=== PATIENT | female | born 1940 | race Caucasian/White ===

== ENCOUNTER 2016-08-11 13:23 | Inpatient (IN) ==
[2016-08-11 14:35] LABS: Basophils % 0.1 %; Eosinophils % 0.4 %; Hematocrit 33.3 % (35.3-44.9); Hemoglobin 10.2 g/dL (11.5-15.4); Immature Granulocytes % 0.5 % (0-4); Lymphocytes # 1.5 K/mcL (0.6-4.6); Lymphocytes % 13.6 %; Mean Corpuscular HGB Conc 30.6 g/dL (31.6-35.5); Mean Corpuscular Hemoglobin 25.6 pg (28.0-33.3); Mean Corpuscular Volume 83.5 fL (83.0-100.0); Mean Platelet Volume 9.8 fL (9.4-12.4); Monocytes # 0.9 K/mcL (0.0-1.3); Monocytes % 8.1 %; Neutrophils # 8.6 K/mcL (1.6-8.9); Platelet Count 374 K/mcL (140-400); Red Blood Count 3.99 M/mcL (3.82-4.97); Segmented Neutrophils % 77.3 %
[2016-08-11 14:46] LABS: BUN/Creatinine Ratio 30 (6-26); Blood Urea Nitrogen 23 mg/dL (7-20); Calcium 8.9 mg/dL (8.6-10.8); Carbon Dioxide 33 mEq/L (19-29); Chloride 101 mEq/L (98-109); Glucose 111 mg/dL (70-99); Osmolality,Calculated 298 (280-300); Potassium 3.6 mEq/L (3.5-4.5); Sodium 142 mEq/L (136-145); eGFR For African Americans > 60 (> 60); eGFR For Non-African Americans > 60 (> 60)
[2016-08-11] MEDS ORDERED: Furosemide 40 MG/4 ML VIAL IVP ONE (15:17)
[2016-08-11 16:03] LABS: Bilirubin,Urine Small (Negative); Blood,Urine Negative (Negative); Clarity,Urine Turbid (Clear); Color,Urine Dark Yellow (Yellow); Glucose,Urine (UA) Normal (Normal); Ketones,Urine Trace mg/dL (Negative); Leukocyte Esterase,Urine Small (Negative); Nitrite,Urine Negative (Negative); Protein,Urine 30 mg/dL (Neg-Trace); Specific Gravity,Urine 1.026 (1.010-1.025); Urobilinogen,Urine Normal (Normal)
[2016-08-11 16:05] LABS: Bacteria,Urine Many per hpf (None-Few); Hyaline Casts,Urine Few per lpf (None-Few); Squamous Epithelial Cell,Urine Many per lpf (None-Few)
[2016-08-11 16:18] LABS: RBC,Urine 0-3 per hpf (0-3)
--- NOTE | 2016-08-11 16:29 | Emergency Department Note ---
Disposition Clinical Impression: Congestive heart failure Qualifiers: Congestive heart failure type: unspecified congestive heart failure type Congestive heart failure chronicity: unspecified congestive heart failure chronicity Qualified Code(s): I50.9 - Heart failure, unspecified Disposition: Admitted As Inpatient Referrals: Kesha Bustillos CNP [Primary Care Provider] - Forms: ED Satisfaction Letter SOB HPI - General Chief Complaint: ED Upper Respiratory Infection Stated Complaint: congestion// sent from cardiology Source: patient Limitations: no limitations Nursing Notes Reviewed: Yes Vital Signs Reviewed: Yes - History of Present Illness Pt Subjective Complaint: shortness of breath Onset (ago): week(s) (1) Context: recent illness Severity: mild Consistency/Duration: intermittent Improves with: nothing Worsens with: coughing Associated symptoms: Denies: pain with inspiration, fever Treatment prior to arrival: none, other (Patient states she was prescribed a cough syrup) Cough present: Yes Cough Description: Involuntary Cough Frequency: Intermittent - Related Data Home Medications Medication Instructions Recorded Confirmed Atorvastatin [Lipitor] 20 mg PO HS 05/13/15 05/11/16 Multivitamin/Iron/Folic Acid 1 tab PO QAM 05/13/15 05/11/16 [Centrum Complete Multivit Tab] Ranolazine [Ranexa] 500 mg PO BID 05/13/15 05/11/16 Sertraline [Zoloft] 25 mg PO DAILY 02/14/16 05/11/16 Metoprolol Succinate 25 mg PO DAILY 02/15/16 05/11/16 Nitroglycerin [Nitrostat] 0.4 mg SL Q5M PRN 02/15/16 05/11/16 Previous Rx's Medication Instructions Recorded Isosorbide MONOnitrate (24 HR) 60 mg PO DAILY tab.er.24h 02/16/16 [Imdur] Albuterol Sulfate [Albuterol 2 puff IH Q4H PRN #0 03/10/16 Inhaler] Docusate [Colace] 100 mg PO BID PRN #0 capsule 03/10/16 MOM Conc [MILK OF MAGNESIA conc] 10 ml PO DAILY PRN #0 ud.liq 03/10/16 Nitrofurantoin Macrocrystal 100 mg PO QMWF #0 03/10/16 [Nitrofurantoin] TraMADol [Ultram] 50 mg PO BID PRN #120 tablet 03/10/16 Allergies Allergy/AdvReac Type Severity Reaction Status Date / Time codeine Allergy Rash Verified 08/11/16 13:31 Iodinated Contrast Media - Allergy Rash Verified 08/11/16 13:31 Oral and [Iodinated Contrast Media - IV Dye] morphine Allergy Rash Verified 08/11/16 13:31 Penicillins [PCN] Allergy Rash Verified 08/11/16 13:31 Sulfa (Sulfonamide Allergy Rash Verified 08/11/16 13:31 Antibiotics) Tetracycline Allergy Rash Verified 08/11/16 13:31 vancomycin Allergy Rash Verified 08/11/16 13:31 All systems ED: reviewed and negative except as stated. Constitutional: Reports: weakness. Denies: fever, chills Respiratory: Reports: cough, dyspnea Past Medical History - Past Medical History Source: patient, old records reviewed, nursing notes reviewed Medical history: Reports: asthma, coronary artery disease, CVA, diabetes, hypertension, myocardial infarction, peripheral artery disease, TIA Surgical history: Reports: appendectomy, cholecystectomy Psychiatric history: Reports: no psych history [employer] PRINCIPAL history: Reports: no [employer] PRINCIPAL history - Social History Smoking Status: Never smoker Smokeless Tobacco Status: No Alcohol use: Reports: none Drug use: Reports: none Physical Exam - General Limitations: no limitations General appearance: alert - Head Head exam: atraumatic, normocephalic, normal inspection - Eye Eye exam: Present: normal appearance, PERRL, EOMI - ENT ENT exam: normal exam - Neck Neck exam: Present: normal inspection, full ROM, trachea midline - Chest Chest inspection: Present: normal inspection, symmetric chest wall rise - Respiratory Respiratory exam: Present: other (coarse rhonchi with bibasilar rales) - Cardiovascular Cardiovascular exam: Present: regular rate, normal rhythm, normal heart sounds - Abdominal Exam Abdominal exam: Present: soft, Non-Tender. Absent: tenderness, distention, guarding, rebound, rigidity - Neurological Exam Neurological exam: Present: alert, oriented X3 - Psychiatric Psychiatric exam: Present: normal affect, normal mood - Skin Skin exam: Present: warm, dry, intact, normal color Course Vital Signs Temperature 98.8 F 08/11/16 13:25 Pulse Rate 93 08/11/16 13:25 Respiratory Rate 18 08/11/16 13:25 Blood Pressure 182/114 08/11/16 13:25 O2 Sat by Pulse Oximetry 94 L 03/08/17 13:25 Temperature 98.8 F 08/11/16 13:25 Pulse Rate 93 08/11/16 13:25 Respiratory Rate 18 08/11/16 13:25 Blood Pressure 182/114 08/11/16 13:25 O2 Sat by Pulse Oximetry 94 L 08/11/16 13:25 Oxygen Delivery Oxygen Delivery Room Air Shortness of Breath/Dyspnea - Differential Diagnosis Likely: congestive heart failure, pneumonia, pulmonary embolism, arrhythmia - Medical Records Medical records reviewed: Yes I reviewed the patient's medical records. - Lab Data Lab results reviewed: Yes I reviewed the patient's lab results. Result diagrams: 08/11/16 14:27 08/11/16 14:27 Lab Results 08/11/16 08/11/16 08/11/16 Range/Units 14:27 14:27 14:27 WBC 11.1 (4.3-11.1) K/mcL RBC 3.99 (3.82-4.97) M/mcL Hgb 10.2 L (11.5-15.4) g/dL Hct 33.3 L (35.3-44.9) % MCV 83.5 (83.0-100.0) fL MCH 25.6 L (28.0-33.3) pg MCHC 30.6 L (31.6-35.5) g/dL RDW 19.0 H (11.5-14.5) % Plt Count 374 (140-400) K/mcL MPV 9.8 (9.4-12.4) fL Immature Gran % 0.5 (0-4) % Seg Neutrophils % 77.3 % Lymphocytes % 13.6 % Monocytes % 8.1 % Eosinophils % 0.4 % Basophils % 0.1 % Neutrophils # 8.6 (1.6-8.9) K/mcL Lymphocytes # 1.5 (0.6-4.6) K/mcL Monocytes # 0.9 (0.0-1.3) K/mcL Eosinophils # 0.0 (0.0-0.6) K/mcL Basophils # 0.0 (0.0-0.2) K/mcL Sodium 142 (136-145) mEq/L Potassium 3.6 (3.5-4.5) mEq/L Chloride 101 (98-109) mEq/L Carbon Dioxide 33 H (19-29) mEq/L BUN 23 H (7-20) mg/dL Creatinine 0.76 (0.57-1.11) mg/dL Est GFR ( Amer) > 60 (> 60) Est GFR (Non-Af Amer) > 60 (> 60) BUN/Creatinine Ratio 30 H (6-26) Glucose 111 H (70-99) mg/dL Calculated Osmolality 298 (280-300) Calcium 8.9 (8.6-10.8) mg/dL Troponin I 0.02 (0-0.03) ng/mL B-Natriuretic Peptide (0-100) pg/mL Urine Color (Yellow) Urine Clarity (Clear) Urine pH (5.0-8.0) pH Units Ur Specific [place] (1.010-1.025) Urine Protein (Neg-Trace) mg/dL Urine Glucose (UA) (Normal) mg/dL Urine Ketones (Negative) mg/dL Urine Blood (Negative) Urine Nitrite (Negative) Urine Bilirubin (Negative) Urine Urobilinogen (Normal) mg/dL Ur Leukocyte Esterase (Negative) Urine Microscopic RBC (0-3) per hpf Urine Microscopic WBC (0-3) per hpf Ur Squamous Epith Cells (None-Few) per lpf Urine Bacteria (None-Few) per hpf Hyaline Casts (None-Few) per lpf Urine Yeast Ur Culture Indicated? (NO) 08/11/16 08/11/16 Range/Units 14:27 15:52 WBC (4.3-11.1) K/mcL RBC (3.82-4.97) M/mcL Hgb (11.5-15.4) g/dL Hct (35.3-44.9) % MCV (83.0-100.0) fL MCH (28.0-33.3) pg MCHC (31.6-35.5) g/dL RDW (11.5-14.5) % Plt Count (140-400) K/mcL MPV (9.4-12.4) fL Immature Gran % (0-4) % Seg Neutrophils % % Lymphocytes % % Monocytes % % Eosinophils % % Basophils % % Neutrophils # (1.6-8.9) K/mcL Lymphocytes # (0.6-4.6) K/mcL Monocytes # (0.0-1.3) K/mcL Eosinophils # (0.0-0.6) K/mcL Basophils # (0.0-0.2) K/mcL Sodium (136-145) mEq/L Potassium (3.5-4.5) mEq/L Chloride (98-109) mEq/L Carbon Dioxide (19-29) mEq/L BUN (7-20) mg/dL Creatinine (0.57-1.11) mg/dL Est GFR ( Amer) (> 60) Est GFR (Non-Af Amer) (> 60) BUN/Creatinine Ratio (6-26) Glucose (70-99) mg/dL Calculated Osmolality (280-300) Calcium (8.6-10.8) mg/dL Troponin I (0-0.03) ng/mL B-Natriuretic Peptide 751 H (0-100) pg/mL Urine Color Dark Yellow (Yellow) Urine Clarity Turbid A (Clear) Urine pH 6.0 (5.0-8.0) pH Units Ur Specific [place] 1.026 H (1.010-1.025) Urine Protein 30 H (Neg-Trace) mg/dL Urine Glucose (UA) Normal (Normal) mg/dL Urine Ketones Trace H (Negative) mg/dL Urine Blood Negative (Negative) Urine Nitrite Negative (Negative) Urine Bilirubin Small H (Negative) Urine Urobilinogen Normal (Normal) mg/dL Ur Leukocyte Esterase Small H (Negative) Urine Microscopic RBC 0-3 (0-3) per hpf Urine Microscopic WBC 5-15 H (0-3) per hpf Ur Squamous Epith Cells Many H (None-Few) per lpf Urine Bacteria Many H (None-Few) per hpf Hyaline Casts Few (None-Few) per lpf Urine Yeast Test Not Performed Ur Culture Indicated? YES A (NO) - Radiology Data Radiology results reviewed: Yes I reviewed the patient's radiology results. - EKG Data EKG attestation: Yes I reviewed and interpreted this EKG. Rate: Reports: normal Rhythm: Reports: A.Fib [place]/QRS: Reports: normal Interpretation: Reports: nonspecific ST-T wave changes
[2016-08-11] MEDS ORDERED: Furosemide 20 MG TABLET PO PRN ×2 (21:30→21:50)
[2016-08-11] MEDS ORDERED: ALPRAZolam 0.25 MG TABLET PO PRN (21:33)
--- NOTE | 2016-08-11 21:46 | Internal Med History&Physical ---
Date of Encounter: 08/11/16 Time of Encounter: 21:44 Assessment and Plan (1) Acute bronchitis Status: Acute I suspect that the presentation is mainly related to bronchitis and exacerbation of patient's asthma. I will therefore keep the patient on around- the-clock nebulizer treatment. I will also give the patient a small dose of oral steroids. Azithromycin. Will check sputum cultures. There is no Evidence of pneumonia on chest x-ray Qualifiers: Bronchitis organism: unspecified organism Qualified Code(s): J20.9 - Acute bronchitis, unspecified (2) Congestive heart failure Status: Chronic Patient had received 40 mg IV Lasix in the emergency room. I will continue 20 mg PO Lasix daily. Qualifiers: Congestive heart failure type: diastolic Congestive heart failure chronicity: acute on chronic Qualified Code(s): I50.33 - Acute on chronic diastolic (congestive) heart failure (3) Atrial fibrillation Status: Chronic Continual rate control and anticoagulation strategy. The rates is controlled Qualifiers: Atrial fibrillation type: chronic Qualified Code(s): I48.2 - Chronic atrial fibrillation Internal Medicine - H&P: HPI Chief complaint: Shortness of breath and cough History of present illness: Ms. Silverio is a 75 year old female asthma and diastolic CHF chronic persistent aFib presents to the emergency room today with the main complaint of cough shortness of breath. For the past 2 weeks patient has been having cough with scant sputum production and has been getting progressively short of breath. She mentioned that she was having fevers and chills but is not sure of temperature. She has been having chest wheezing. She is not only 6 at home. She denies any notable lower extremity swelling orthopnea or paroxysmal nocturnal dyspnea. She has minimal chest pain only with inspiration. she is on anticoagulation was arousal for atrial fibrillation. Past Med Surg Social Fam HX - Past Medical History Medical history: asthma, coronary artery disease, CVA, diabetes, hypertension, myocardial infarction, peripheral artery disease, TIA Psychiatric history: no psych history - Past Surgical History Surgical History: appendectomy, cholecystectomy - Social History Smoking Status: Never smoker Smokeless Tobacco Status: No Alcohol use: none Drug use: none - Family History Mother Hx Family Cancer: Yes (stomach) Father Hx Family Cardiac Disorders: Yes Daughter Adopted: No Living Status: Still Living Hx Family Cardiac Disorders: Yes (VT) Hx Family Respiratory Disorders: Yes (not sure) Hx Family Cancer: No Hx Family GI Disorders: No Hx Family Endocrine Disorder: Yes (Diabetes) Hx Family Neuromuscular Disorders: No Hx Family Neurologic Disorders: No Hx Family HEENT Disorders: No Hx Family Autoimmune Disorders: No Internal Medicine - H&P: Meds Ranolazine [Ranexa] 500 mg PO BID 05/13/15 [History] Albuterol Sulfate [Albuterol Inhaler] 1 puff IH Q4H PRN 08/11/16 [History] Alprazolam [Xanax 0.25 MG Tablet] 0.25 mg PO Q6H PRN 08/11/16 [History] Aspirin 81 mg PO DAILY 08/11/16 [History] Atorvastatin Calcium [Lipitor] 20 mg PO HS 08/11/16 [History] Calcium Carbonate [Tums] 1,000 mg PO Q4HR PRN 08/11/16 [History] Citalopram Hydrobromide [Citalopram HBr] 10 mg PO HS 08/11/16 [History] Clopidogrel [Plavix] 75 mg PO DAILY 08/11/16 [History] Diphenhydramine HCl [Children's Allergy] 12.5 mg PO Q8H PRN 08/11/16 [History] Divalproex Sodium [Depakote Sprinkle] 125 mg PO TID 08/11/16 [History] Docusate [Colace] 200 mg PO BID 08/11/16 [History] Famotidine [Heartburn Prevention] 20 mg PO BID 08/11/16 [History] GuaiFENesin/Dextromethorphan [Tussin Dm Syrup] 10 ml PO TID 08/11/16 [History] Haloperidol Lactate [Haldol] 1 mg IM Q2H PRN 08/11/16 [History] Haloperidol [Haldol] 1 mg PO Q2H PRN 08/11/16 [History] Isosorbide MONOnitrate (24 HR) [Imdur] 90 mg PO DAILY 08/11/16 [History] Metoprolol XL (24 HR) Succ [Toprol Xl] 50 mg PO DAILY 08/11/16 [History] Polyethylene Glycol 3350 [MiraLAX Powder Bulk 17.9 Oz] 1 scoop PO DAILY [History] Rivaroxaban [Xarelto] 15 mg PO 1700 08/11/16 [History] Temazepam [Restoril] 7.5 mg PO HS 08/11/16 [History] TraMADol [Ultram] 50 mg PO Q8H PRN 08/11/16 [History] Clindamycin [Cleocin] 300 mg PO TID 7 Days 08/15/16 [Rx] Ipratropium/Albuterol Neb [Duoneb] 3 ml IH [id number] inhsol 08/15/16 [Rx] Lactobac Cmb #3/Fos/Pantethine [Probiotic & Acidophilus Cap] 1 each PO BID 30 Days 08/15/16 [Rx] Linezolid [Zyvox] 600 mg PO BID 10 Days 08/15/16 [Rx] PredniSONE 10 mg PO DAILY 7 Days 08/15/16 [Rx] Allergies codeine Allergy (Verified 08/11/16 13:31) Rash Iodinated Contrast Media - Oral and [Iodinated Contrast Media - IV Dye] Allergy (Verified 08/11/16 13:31) Rash morphine Allergy (Verified 08/11/16 13:31) Rash Penicillins [PCN] Allergy (Verified 08/11/16 13:31) Rash Sulfa (Sulfonamide Antibiotics) Allergy (Verified 08/11/16 13:31) Rash Tetracycline Allergy (Verified 08/11/16 13:31) Rash vancomycin Allergy (Verified 08/11/16 13:31) Rash All Systems PM: A 10-system review of systems was performed and is negative for pertinent findings except as documented above in the HPI. Review of systems: 10 point review of systems is negative except for HPI - Constitutional Vitals: Temp Pulse Resp BP Pulse Ox 98.0 F 68 16 168/90 95 08/11/16 19:56 08/11/16 19:56 08/11/16 19:56 08/11/16 19:56 08/11/16 19:56 Exam: Gen.: patient is alert and oriented times 3 and often distress cardiac: normal S1 S2 chest: coarse breath sounds and scattered expiratory wheeze abdomen: soft nontender nondistended lower extremity no swelling Internal Med - H&P Results - Labs CBC & Chem 7: 08/15/16 04:13 08/15/16 04:13
[2016-08-11] MEDS: Azithromycin 500 MG in D5% in Water 250 ML IVPB SCH (23:27)
[2016-08-11] MEDS: predniSONE 20 MG TABLET PO SCH (23:28)
[2016-08-11] MEDS: Ipratropium/Albuterol Neb 3 ML IH SCH (23:52)
[2016-08-12] MEDS ORDERED: Ondansetron 4 MG/2 ML VIAL IVP PRN (00:56)
[2016-08-12] MEDS: traMADol 50 MG TABLET PO PRN ×2 (01:16→21:12)
[2016-08-12] MEDS: Ipratropium/Albuterol Neb 3 ML IH SCH ×4 (03:41→22:56)
[2016-08-12 04:47] LABS: Basophils % 0.1 %; Eosinophils % 0.1 %; Hematocrit 34.4 % (35.3-44.9); Hemoglobin 10.5 g/dL (11.5-15.4); Immature Granulocytes % 0.4 % (0-4); Lymphocytes # 0.8 K/mcL (0.6-4.6); Lymphocytes % 8.6 %; Mean Corpuscular HGB Conc 30.5 g/dL (31.6-35.5); Mean Corpuscular Hemoglobin 25.8 pg (28.0-33.3); Mean Corpuscular Volume 84.5 fL (83.0-100.0); Mean Platelet Volume 10.3 fL (9.4-12.4); Monocytes # 0.3 K/mcL (0.0-1.3); Monocytes % 3.3 %; Neutrophils # 8.3 K/mcL (1.6-8.9); Platelet Count 351 K/mcL (140-400); Red Blood Count 4.07 M/mcL (3.82-4.97); Red Cell Distribution Width 19.3 % (11.5-14.5); Segmented Neutrophils % 87.5 %
[2016-08-12 05:02] LABS: BUN/Creatinine Ratio 28 (6-26); Blood Urea Nitrogen 20 mg/dL (7-20); Calcium 8.2 mg/dL (8.6-10.8); Carbon Dioxide 35 mEq/L (19-29); Chloride 100 mEq/L (98-109); Glucose 117 mg/dL (70-99); Magnesium 1.4 mg/dL (1.6-2.6); Osmolality,Calculated 298 (280-300); Potassium 3.6 mEq/L (3.5-4.5); Sodium 142 mEq/L (136-145); eGFR For African Americans > 60 (> 60); eGFR For Non-African Americans > 60 (> 60)
[2016-08-12] MEDS: Famotidine 20 MG TABLET PO SCH ×3 (06:37→16:02)
[2016-08-12] MEDS ORDERED: Furosemide 20 MG/2 ML VIAL IVP SCH (09:00)
[2016-08-12] MEDS: Ranolazine 500 MG TAB.ER.12H PO SCH ×2 (09:11→21:13)
[2016-08-12] MEDS: predniSONE 20 MG TABLET PO SCH (09:12)
[2016-08-12] MEDS: Isosorbide MONOnitrate (24 HR) 30 MG TAB.ER.24H PO SCH (09:13)
[2016-08-12] MEDS: Aspirin 81 MG TAB.CHEW PO SCH (09:15)
[2016-08-12] MEDS: Metoprolol XL (24 HR) Succ 50 MG TAB.ER.24H PO SCH (09:17)
[2016-08-12] MEDS: Divalproex Sodium 125 MG CAPSULE PO SCH ×3 (09:25→21:13)
--- NOTE | 2016-08-12 11:07 | Electrocardiograph Report ---
[address] [address] Test Date: 2016-08-11 Pat Name: Irene Jean Claude Department: 102 Room: 3B48 Gender: F It Desktop Support Technician: : 1940 Requested By: Dilshad Oakley Order Number: [id number] Reading MD: Alverto Anderson MD Measurements Intervals [place] Rate: 89 P: MS: 0 QRS: 3 QRSD: 81 T: 66 QT: 368 QTc: 415 Interpretive Statements ATRIAL FIBRILLATION NONSPECIFIC ST \T\ T-WAVE ABNORMALITY Poor R wave progression Electronically Signed On 08-12-2016 11:05:23 EST by Alverto Anderson MD
--- NOTE | 2016-08-12 13:41 | Internal Med Progress Note ---
Date of Encounter: 08/12/16 Time of Encounter: 10:30 - Assessment and plan (1) Acute bronchitis Current Visit: Yes Status: Acute Assessment and plan: Patient saying her shortness of breath is improving but she is not yet back to her baseline. At home, she is on 2 L per nasal cannula at that time, she is currently on 2 L continuously. Fair to good aeration throughout with coarse rhonchi and upper airway congestion noted. We will continue to gently diurese, will add mucolytic's. (2) Chest pain Current Visit: No Status: Acute Assessment and plan: Reproducible with palpation and worsened with coughing. Musculoskeletal etiology secondary to chronic cough over the past couple weeks. We will continue with pain management and incentive spirometry. Qualifiers: Chest pain type: unspecified Qualified Code(s): R07.9 - Chest pain, unspecified (3) Acute and chronic respiratory failure Current Visit: Yes Status: Acute Assessment and plan: 2 L per nasal cannula at bedtime home, currently on 2 L continuously. We will continue to attempt to titrate her down to room air while awake. We will trend. (4) Congestive heart failure Current Visit: Yes Status: Chronic Assessment and plan: Patient had an echocardiogram on which revealed ejection fraction of 65 % with indeterminate diastolic function. She is on Lasix at home, suspect chronic diastolic heart failure. Mild acute exacerbation. Chest x-ray consistent with mild pulmonary vascular congestion. No pedal edema. Continue to gently diurese and monitor renal functioning. ITS Impressions Chest X-Ray 08/11/16 13:49 IMPRESSION: Minimal pulmonary vascular congestion D/ / Omar Sales MD / Omar Sales MD Interpreting Provider: Omar Sales MD (5) Asymptomatic bacteriuria Current Visit: Yes Status: Suspected Assessment and plan: Suspected. Patient's urine culture revealing lactobacillus which is likely a contaminant- no need for antibiotics at this time. She has no overt symptoms of an infection. No leukocytosis. No fever. Vital signs stable. We will repeat urinalysis. Patient also denies abdominal pain or dysuria. 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 She is reportedly a bed hold [facility], plan is to send her back when cleared (9) Atrial fibrillation Current Visit: No Status: Chronic Assessment and plan: Rate controlled, on Xarelto Qualifiers: Atrial fibrillation type: paroxysmal Qualified Code(s): I48.0 - Paroxysmal atrial fibrillation (10) CKD (chronic kidney disease) stage 3, GFR 30-59 ml/min Current Visit: No Status: Inactive Assessment and plan: Patient has had normal renal functioning since March 2016. No indication of chronic kidney disease at this time. (11) Hypertension Current Visit: No Status: Chronic Assessment and plan: Borderline hypertensive. At home, patient is on metoprolol XL 50 mg daily, Imdur 90 mg daily and these have continued, will monitor her blood pressure as we gently diurese her Qualifiers: Hypertension type: essential hypertension Qualified Code(s): I10 - Essential (primary) hypertension - Subjective Interval history: Patient seen and examined. On examination, patient sitting upright in bed watching television. Patient alert and oriented and currently denies pain. She states that she is still short of breath and states she has been coughing and has been sick for weeks. She states she ate a little of her breakfast but really didn't care for it. She denies any nausea or vomiting. - Constitutional Vitals: Temp Pulse Resp BP Pulse Ox 97.3 F L 87 17 165/92 94 L 08/12/16 07:20 08/12/16 07:20 08/12/16 07:20 08/12/16 07:20 08/12/16 07:20 General appearance: Present: A&O X 3, pleasant, no acute distress, answers questions appropriately - Head Head exam: Present: atraumatic, normocephalic - Eye Eye exam: Present: PERRL, conjuntiva pink, sclera anicteric Pupils: Present: PERRL - Neck Neck exam general surgery: Present: supple, trachea midline. Absent: lymphadenopathy - Respiratory Respiratory exam: Present: chest wall tenderness, decreased breath sounds, rhonchi. Absent: accessory muscle use, rales, respiratory distress, wheezes - Cardiovascular Cardiovascular exam: Present: RRR, +S1, +S2. Absent: diastolic murmur, gallop, rubs, systolic murmur - GI/Abdominal GI/Abdominal exam: Present: normal bowel sounds, soft, no peritoneal signs. Absent: distended, tenderness - Extremities Exam Extremities exam: Present: warm, radial pulses palpable and symetrical. Absent : calf tenderness, cyanotic, pedal edema - Neurological Exam Neurological exam: Present: alert, CN II-XII intact, oriented X3, no focal deficits, strengths equal and symetr throughout. Absent: pronater drift, facial droop, speech deficit - Skin Skin exam: Present: dry, intact, pallor, warm Internal Medicine: Result - Labs CBC & Chem 7: 08/12/16 03:56 08/12/16 03:56 Labs: Short CBC 08/12/16 Range/Units 03:56 WBC 9.4 (4.3-11.1) K/mcL Hgb 10.5 L (11.5-15.4) g/dL Hct 34.4 L (35.3-44.9) % Plt Count 351 (140-400) K/mcL Neutrophils # 8.3 (1.6-8.9) K/mcL BMP 08/12/16 03:56 Sodium 142 Potassium 3.6 Chloride 100 Carbon Dioxide 35 H BUN 20 Creatinine 0.71 Glucose 117 H Calcium 8.2 L Consult Discharge Plan - Plan Referrals: Kesha Bustillos, WE[employer] PAGE DEVELOPER [Primary Care Provider] -
[2016-08-12] MEDS: *HR* Rivaroxaban 15 MG TABLET PO SCH (16:02)
[2016-08-12 21:22] LABS: Bilirubin,Urine Moderate (Negative); Blood,Urine Large (Negative); Clarity,Urine Turbid (Clear); Glucose,Urine (UA) Normal (Normal); Ketones,Urine Trace mg/dL (Negative); Leukocyte Esterase,Urine Small (Negative); Nitrite,Urine Positive (Negative); Protein,Urine 100 mg/dL (Neg-Trace); Specific Gravity,Urine 1.029 (1.010-1.025); Urobilinogen,Urine Normal (Normal)
[2016-08-12 21:26] LABS: Color,Urine Brown (Yellow)
[2016-08-12 21:40] LABS: RBC,Urine TNTC per hpf (0-3)
[2016-08-12 21:41] LABS: Bacteria,Urine Present per hpf (None-Few); Squamous Epithelial Cell,Urine Present per lpf (None-Few); WBC,Urine Present per hpf (0-3)
[2016-08-12] MEDS: Azithromycin 500 MG in D5% in Water 250 ML IVPB SCH (22:01)
[2016-08-13] MEDS: Ipratropium/Albuterol Neb 3 ML IH SCH ×4 (04:32→21:47)
[2016-08-13 04:49] LABS: Basophils % 0.1 %; Eosinophils % 0.1 %; Hematocrit 32.5 % (35.3-44.9); Hemoglobin 9.6 g/dL (11.5-15.4); Immature Granulocytes % 0.4 % (0-4); Lymphocytes # 1.8 K/mcL (0.6-4.6); Lymphocytes % 10.7 %; Mean Corpuscular HGB Conc 29.5 g/dL (31.6-35.5); Mean Corpuscular Hemoglobin 24.7 pg (28.0-33.3); Mean Corpuscular Volume 83.8 fL (83.0-100.0); Mean Platelet Volume 10.2 fL (9.4-12.4); Monocytes # 1.2 K/mcL (0.0-1.3); Monocytes % 6.8 %; Platelet Count 366 K/mcL (140-400); Red Blood Count 3.88 M/mcL (3.82-4.97); Red Cell Distribution Width 19.1 % (11.5-14.5); Segmented Neutrophils % 81.9 %
[2016-08-13 04:57] LABS: Neutrophils # 13.8 K/mcL (1.6-8.9)
[2016-08-13 05:02] LABS: BUN/Creatinine Ratio 31 (6-26); Blood Urea Nitrogen 25 mg/dL (7-20); Calcium 8.4 mg/dL (8.6-10.8); Carbon Dioxide 34 mEq/L (19-29); Chloride 98 mEq/L (98-109); Glucose 95 mg/dL (70-99); Osmolality,Calculated 294 (280-300); Potassium 3.3 mEq/L (3.5-4.5); Sodium 140 mEq/L (136-145); eGFR For African Americans > 60 (> 60); eGFR For Non-African Americans > 60 (> 60)
[2016-08-13] MEDS ORDERED: Furosemide 20 MG TABLET PO SCH (09:00)
[2016-08-13] MEDS: Ranolazine 500 MG TAB.ER.12H PO SCH ×2 (09:18→20:01)
[2016-08-13] MEDS: Isosorbide MONOnitrate (24 HR) 30 MG TAB.ER.24H PO SCH (09:18)
[2016-08-13] MEDS: predniSONE 20 MG TABLET PO SCH (09:19)
[2016-08-13] MEDS: Aspirin 81 MG TAB.CHEW PO SCH (09:19)
[2016-08-13] MEDS: traMADol 50 MG TABLET PO PRN (09:19)
[2016-08-13] MEDS: Famotidine 20 MG TABLET PO SCH ×2 (09:19→16:00)
[2016-08-13] MEDS: Metoprolol XL (24 HR) Succ 50 MG TAB.ER.24H PO SCH (09:20)
[2016-08-13] MEDS: Divalproex Sodium 125 MG CAPSULE PO SCH ×3 (09:20→19:59)
[2016-08-13] MEDS: *HR* Rivaroxaban 15 MG TABLET PO SCH (16:00)
--- NOTE | 2016-08-13 16:03 | Internal Med Progress Note ---
Date of Encounter: 08/13/16 Time of Encounter: 12:30 - Assessment and plan (1) Acute encephalopathy Current Visit: Yes Status: Acute Assessment and plan: When I examine the patient earlier this morning, she was alert and oriented 3. She would randomly safe and appropriate things however she was able to answer questions and follow conversation. Throughout the course of the day, patient has started to exhibit signs of confusion intermittently. Nursing reports that the patient has been increasingly more confused over the course of today. Her urine is also noted to be brown. Leukocytosis noted overnight and appears to be more of an increased and would be seen with low-dose steroids that she has been on for the last 3 days. Unclear causation at this time. Initial urinalysis and culture consistent with lactobacillus however repeat urinary culture negative. At this point, Lasix has been stopped and IV fluids have been initiated and will check blood culture, ABGs, CBC, chemistry and initiate broad-spectrum antibiotics. Given all of her allergies, we will treat her with meropenem and Zyvox given her history of MRSA. Of note, also during the course of today, patient stating that she is now very itchy and is requesting Benadryl. Possible adverse reaction to cephalosporins which is consistent with her prior allergic reactions to other antibiotics. Heart rate is also trended up over the course of today, we will bolus with 500 mL. We will obtain a chest CT to rule out pneumonia. Patient has had URI symptoms with a sore throat for a couple weeks, so strep throat is a possiblity and will check Antistreptolysin O antibody to rule out post strep glomerular nephritis. Will also obtain urine creat/protein ratio and microalbumin levels. (2) Sepsis Current Visit: Yes Status: Acute Assessment and plan: 500 mL bolus followed by maintenance IV fluids. Labs ordered and are pending. Patient remains alert and appropriate for the most part but is still confused at times. We will monitor her mentation. Unknown causation at this time. Initial urine culture lactobacillus thought to be consistent with contaminant, repeat urine culture negative. Chest CT pending to rule out pneumonia. (3) Leukocytosis Current Visit: Yes Status: Acute (4) Acute bronchitis Current Visit: Yes Status: Acute Assessment and plan: Patient is sitting or shortness of breath has improved. She remains on 2 L per nasal cannula continuously, on 2 L at bedtime only at home. Good aeration noted throughout with few, scattered coarse breath sounds consistent with upper airway congestion. Patient stating she has a moist cough but is unable to cough up sputum. Continue mucolytic's and add chest physiotherapy. (5) Chest pain Current Visit: No Status: Resolved Assessment and plan: Patient denies chest pain at this time. Yesterday it was reproducible with palpation and worsened with coughing consistent with musculoskeletal etiology. We will continue with pain management and incentive spirometry. Qualifiers: Chest pain type: unspecified Qualified Code(s): R07.9 - Chest pain, unspecified (6) Acute and chronic respiratory failure Current Visit: Yes Status: Acute Assessment and plan: 2 L per nasal cannula at bedtime home, currently on 2 L continuously. We will continue to attempt to titrate her down to room air while awake. Given her leukocytosis overnight, will obtain a chest CT. We will trend. (7) Congestive heart failure Current Visit: Yes Status: Chronic Assessment and plan: Patient had an echocardiogram on 02/16/16 which revealed ejection fraction of 65 % with indeterminate diastolic function. She is on Lasix at home, suspect chronic diastolic heart failure. Was in a mild acute exacerbation but she appears slightly dehydrated on examination with darker urine- will stop lasix and add IVF. Chest x-ray consistent with mild pulmonary vascular congestion from 2 days ago- will obtain chest CT. No pedal edema. ITS Impressions Chest X-Ray 08/11/16 13:49 IMPRESSION: Minimal pulmonary vascular congestion D/ / Omar Sales MD / Omar Sales MD Interpreting Provider: Omar Sales MD (8) Asymptomatic bacteriuria Current Visit: Yes Status: Suspected Assessment and plan: Suspected. Patient's urine culture revealing lactobacillus which is likely a contaminant- no need for antibiotics at this time. Repeat urine culture negative however patient with leukocytosis overnight. 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 (11) Weakness Current Visit: No Status: Acute Assessment and plan: OT and PT are on board and have recommended ECF. She is reportedly a bed hold [facility], plan is to send her back when cleared (12) Atrial fibrillation Current Visit: No Status: Chronic Assessment and plan: Rate controlled, on Xarelto Qualifiers: Atrial fibrillation type: paroxysmal Qualified Code(s): I48.0 - Paroxysmal atrial fibrillation (13) CKD (chronic kidney disease) stage 3, GFR 30-59 ml/min Current Visit: No Status: Inactive Assessment and plan: Patient has had normal renal functioning since March 2016. No indication of chronic kidney disease at this time. (14) Hypertension Current Visit: No Status: Chronic Assessment and plan: Borderline hypertensive. At home, patient is on metoprolol XL 50 mg daily, Imdur 90 mg daily and these have continued, will monitor her blood pressure and adjust medications as needed Qualifiers: Hypertension type: essential hypertension Qualified Code(s): I10 - Essential (primary) hypertension - Time Spent With Patient Greater than 35 minutes - Subjective Interval history: Patient seen and examined. On examination, patient sitting upright in bed eating lunch. She denies pain or shortness of breath. She was alert and oriented x3 but would say inappropriate things at times and would be difficult to follow in conversation. - Constitutional Vitals: Temp Pulse Resp BP Pulse Ox 98.0 F 100 16 146/94 97 08/13/16 14:57 08/13/16 14:57 08/13/16 14:57 08/13/16 14:57 08/13/16 14:57 General appearance: Present: A&O X 3, pleasant, no acute distress, answers questions appropriately (most of the time) - Head Head exam: Present: atraumatic, normocephalic - Eye Eye exam: Present: PERRL, conjuntiva pink, sclera anicteric Pupils: Present: PERRL - Neck Neck exam general surgery: Present: supple, trachea midline. Absent: lymphadenopathy - Respiratory Respiratory exam: Present: CTAB. Absent: accessory muscle use, rales, respiratory distress, rhonchi, wheezes - Cardiovascular Cardiovascular exam: Present: RRR, +S1, +S2, tachycardia. Absent: diastolic murmur, gallop, rubs, systolic murmur - GI/Abdominal GI/Abdominal exam: Present: normal bowel sounds, soft, no peritoneal signs. Absent: distended, tenderness - Extremities Exam Extremities exam: Present: warm, radial pulses palpable and symetrical. Absent : calf tenderness, cyanotic, pedal edema - Neurological Exam Neurological exam: Present: alert, CN II-XII intact, oriented X3, no focal deficits, strengths equal and symetr throughout. Absent: pronater drift, facial droop, speech deficit - Skin Skin exam: Present: dry, intact, pallor, warm Internal Medicine: Result - Labs CBC & Chem 7: 08/13/16 03:57 08/13/16 03:57 Labs: Short CBC 08/13/16 Range/Units 03:57 WBC 16.9 H D (4.3-11.1) K/mcL Hgb 9.6 L (11.5-15.4) g/dL Hct 32.5 L (35.3-44.9) % Plt Count 366 (140-400) K/mcL Neutrophils # 13.8 H (1.6-8.9) K/mcL BMP 08/13/16 03:57 Sodium 140 Potassium 3.3 L Chloride 98 Carbon Dioxide 34 H BUN 25 H Creatinine 0.81 Glucose 95 Calcium 8.4 L Urine 08/12/16 Range/Units 21:00 Urine Color Brown (Yellow) Urine Clarity Turbid A (Clear) Urine pH 6.0 (5.0-8.0) pH Units Ur Specific Juda 1.029 H (1.010-1.025) Urine Protein 100 H (Neg-Trace) mg/dL Urine Glucose (UA) Normal (Normal) mg/dL Consult Discharge Plan - Plan Referrals: Kesha Bustillos CNP [Primary Care Provider] - 08/17/16 9:00 am
[2016-08-13] MEDS ORDERED: 0.9 % Sodium Chloride 500 ML IVC ONE (16:13)
[2016-08-13 16:34] LABS: Basophils % 0.1 %; Eosinophils % 0.1 %; Hematocrit 31.2 % (35.3-44.9); Hemoglobin 9.6 g/dL (11.5-15.4); Immature Granulocytes % 0.6 % (0-4); Lymphocytes # 1.3 K/mcL (0.6-4.6); Lymphocytes % 8.2 %; Mean Corpuscular HGB Conc 30.8 g/dL (31.6-35.5); Mean Corpuscular Hemoglobin 25.7 pg (28.0-33.3); Mean Corpuscular Volume 83.6 fL (83.0-100.0); Mean Platelet Volume 10.1 fL (9.4-12.4); Monocytes # 0.6 K/mcL (0.0-1.3); Monocytes % 3.7 %; Neutrophils # 14.1 K/mcL (1.6-8.9); Platelet Count 380 K/mcL (140-400); Red Blood Count 3.73 M/mcL (3.82-4.97); Red Cell Distribution Width 19.4 % (11.5-14.5); Segmented Neutrophils % 87.3 %
[2016-08-13 16:45] LABS: BUN/Creatinine Ratio 27 (6-26); Blood Urea Nitrogen 23 mg/dL (7-20); Calcium 8.8 mg/dL (8.6-10.8); Carbon Dioxide 33 mEq/L (19-29); Chloride 98 mEq/L (98-109); Glucose 111 mg/dL (70-99); Osmolality,Calculated 292 (280-300); Potassium 4.1 mEq/L (3.5-4.5); Sodium 139 mEq/L (136-145); eGFR For African Americans > 60 (> 60); eGFR For Non-African Americans > 60 (> 60)
[2016-08-13] MEDS: Meropenem 500 MG in 0.9 % Sodium Chloride Mini Bag 100 ML IVPB SCH ×2 (16:58→23:35)
[2016-08-13] MEDS: 0.9 % Sodium Chloride 1,000 ML IVC SCH (17:42)
[2016-08-13 21:03] LABS: ABG Base Excess 12.9 mEq/L (-2.0 to 3.0); ABG Oxygen Saturation 97 % (95-98); ABG PCO2 66 mmHg (35-45); ABG PH 7.39 pH Units (7.32-7.45); ABG PO2 97 mmHg (85-104)
[2016-08-13 21:06] LABS: Blood Gas FiO2 28 %
[2016-08-14] MEDS: traMADol 50 MG TABLET PO PRN (03:25)
[2016-08-14 03:38] LABS: Protein/Creatinine Ratio,Urine 1.2 mg/mg (0-0.20)
[2016-08-14] MEDS: Ipratropium/Albuterol Neb 3 ML IH SCH ×4 (04:13→22:54)
[2016-08-14 05:15] LABS: Basophils % 0.1 %; Eosinophils # 0.1 K/mcL (0.0-0.6); Eosinophils % 1.5 %; Hematocrit 29.6 % (35.3-44.9); Hemoglobin 8.7 g/dL (11.5-15.4); Immature Granulocytes % 0.5 % (0-4); Lymphocytes # 1.6 K/mcL (0.6-4.6); Lymphocytes % 17.5 %; Mean Corpuscular HGB Conc 29.4 g/dL (31.6-35.5); Mean Corpuscular Hemoglobin 25.3 pg (28.0-33.3); Mean Platelet Volume 10.8 fL (9.4-12.4); Monocytes # 0.7 K/mcL (0.0-1.3); Monocytes % 8.1 %; Neutrophils # 6.4 K/mcL (1.6-8.9); Platelet Count 342 K/mcL (140-400); Red Blood Count 3.44 M/mcL (3.82-4.97); Red Cell Distribution Width 19.4 % (11.5-14.5); Segmented Neutrophils % 72.3 %
[2016-08-14 05:44] LABS: BUN/Creatinine Ratio 27 (6-26); Blood Urea Nitrogen 22 mg/dL (7-20); Carbon Dioxide 34 mEq/L (19-29); Chloride 100 mEq/L (98-109); Glucose 116 mg/dL (70-99); Osmolality,Calculated 296 (280-300); Potassium 3.2 mEq/L (3.5-4.5); Sodium 141 mEq/L (136-145); eGFR For African Americans > 60 (> 60); eGFR For Non-African Americans > 60 (> 60)
[2016-08-14] MEDS: Isosorbide MONOnitrate (24 HR) 30 MG TAB.ER.24H PO SCH (08:51)
[2016-08-14] MEDS: Meropenem 500 MG in 0.9 % Sodium Chloride Mini Bag 100 ML IVPB SCH ×3 (08:51→23:39)
[2016-08-14] MEDS: Famotidine 20 MG TABLET PO SCH (08:52)
[2016-08-14] MEDS: Ranolazine 500 MG TAB.ER.12H PO SCH ×2 (08:52→19:57)
[2016-08-14] MEDS: predniSONE 20 MG TABLET PO SCH (08:52)
[2016-08-14] MEDS: Aspirin 81 MG TAB.CHEW PO SCH (08:52)
[2016-08-14] MEDS: Metoprolol XL (24 HR) Succ 50 MG TAB.ER.24H PO SCH (08:52)
[2016-08-14] MEDS: Divalproex Sodium 125 MG CAPSULE PO SCH ×3 (08:52→19:57)
--- NOTE | 2016-08-14 12:17 | Internal Med Progress Note ---
Date of Encounter: 08/14/16 Time of Encounter: 12:17 - Assessment and plan (1) Acute and chronic respiratory failure Current Visit: Yes Status: Acute Assessment and plan: Secondary to acute bronchitis and pneumonia. ABG shows PCO2 of 67. Patient is on 2 L oxygen continuous. Yesterday she had worsening of mental status and acute increase in her white blood cell count to 16. CT chest showed left lower lobe airspace disease and patchy densities in right lower lobe. Patient was started on broad-spectrum antibiotics: Zyvox and meropenem as she is allergic to other first-line antibiotics. Today her leukocytosis has resolved. Her shortness of breath is improved. She will be weaned oxygen. Blood cultures are pending. Rapid strep is pending. Continue prednisone. We will continue BiPAP. Continue cardiac diet. Continue physical therapy and occupational therapy. Qualifiers: Respiratory failure complication: hypercapnia Qualified Code(s): J96.22 - Acute and chronic respiratory failure with hypercapnia (2) Sepsis Current Visit: Yes Status: Acute Assessment and plan: Secondary to bacterial pneumonia. Patient had leukocytosis, hypotension, tachypnea. CT chest shows pneumonia. Treatment as stated above. Qualifiers: Sepsis type: sepsis due to unspecified organism Qualified Code(s): A41.9 - Sepsis, unspecified organism (3) Pneumonia Current Visit: Yes Status: Acute Assessment and plan: Plan as stated above. Likely bacterial. We will de-escalate antibiotics according to culture sensitivities. CBC and BMP in the morning. Qualifiers: Pneumonia type: due to unspecified organism Laterality: bilateral Lung location: lower lobe of lung Qualified Code(s): J18.9 - Pneumonia, unspecified organism (4) Acute encephalopathy Current Visit: Yes Status: Acute Assessment and plan: Most likely secondary to pneumonia. Resolved. Patient is alert oriented 3. We will continue monitoring. (5) Acute bronchitis Current Visit: Yes Status: Acute Assessment and plan: Patient's shortness of breath has improved. We will slowly wean her off the oxygen. We will continue Mucinex, and chest physiotherapy. She continues to have a cough that is unproductive. Qualifiers: Bronchitis organism: unspecified organism Qualified Code(s): J20.9 - Acute bronchitis, unspecified (6) DVT prophylaxis Current Visit: Yes Status: Acute Assessment and plan: Continue Xarelto (7) History of coronary artery disease Current Visit: Yes Status: Acute Assessment and plan: Denies chest pain. Troponin normal. Continue home statin, beta susanna, Plavix, aspirin (8) Congestive heart failure Current Visit: Yes Status: Chronic Assessment and plan: Initially patient was admitted for a mild acute exacerbation with a BMP of 751. Repeat BMP is 416 Patient had an echocardiogram on 02/16/16 which revealed ejection fraction of 65 % with indeterminate diastolic function. On exam patient appears dry. Lasix will continue to be withheld. Kidney function WNL However patient is producing brown turbid urine. Urine culture negative. Patients 700cc urine in the past 24 hours. Repeat BMP Qualifiers: Congestive heart failure type: diastolic Congestive heart failure chronicity: acute on chronic Qualified Code(s): I50.33 - Acute on chronic diastolic (congestive) heart failure (9) Atrial fibrillation Current Visit: No Status: Chronic Assessment and plan: Rate controlled, on Xarelto Qualifiers: Atrial fibrillation type: paroxysmal Qualified Code(s): I48.0 - Paroxysmal atrial fibrillation (10) Chest pain Current Visit: No Status: Resolved Assessment and plan: Patient denies chest pain at this time. Yesterday it was reproducible with palpation and worsened with coughing consistent with musculoskeletal etiology. We will continue with pain management and incentive spirometry. Qualifiers: Chest pain type: unspecified Qualified Code(s): R07.9 - Chest pain, unspecified - Subjective Interval history: Patient states she feels better than yesterday. She complains of pleuritic chest pain that worsens with cough and deep inspiration. She denies abdominal pain, difficulty urinating, has an increased appetite. - Constitutional Vitals: Temp Pulse Resp BP Pulse Ox 97.4 F L 82 20 142/80 96 08/14/16 10:09 08/14/16 10:09 08/14/16 11:21 08/14/16 10:08/14/16 11:21 General appearance: Present: A&O X 3, pleasant, no acute distress, answers questions appropriately (most of the time) - Eye Eye exam: Present: PERRL, conjuntiva pink, sclera anicteric - Neck Neck exam general surgery: Present: supple, trachea midline. Absent: lymphadenopathy - Respiratory Respiratory exam: Present: decreased breath sounds, rhonchi (Left mid lobe). Absent: rales, wheezes - Cardiovascular Cardiovascular exam: Present: RRR, +S1, +S2. Absent: diastolic murmur, gallop, rubs, systolic murmur - GI/Abdominal GI/Abdominal exam: Present: normal bowel sounds, soft, no peritoneal signs. Absent: distended, tenderness - Extremities Exam Extremities exam: Present: warm, radial pulses palpable and symetrical. Absent : calf tenderness, cyanotic, pedal edema - Neurological Exam Neurological exam: Present: alert, CN II-XII intact, oriented X3, no focal deficits. Absent: pronater drift, facial droop, speech deficit Internal Medicine: Result - Labs CBC & Chem 7: 08/14/16 04:14 08/14/16 04:14 Labs: Short CBC 08/14/16 Range/Units 04:14 WBC 8.8 (4.3-11.1) K/mcL Hgb 8.7 L (11.5-15.4) g/dL Hct 29.6 L (35.3-44.9) % Plt Count 342 (140-400) K/mcL Neutrophils # 6.4 (1.6-8.9) K/mcL BMP 08/14/16 04:14 Sodium 141 Potassium 3.2 L Chloride 100 Carbon Dioxide 34 H BUN 22 H Creatinine 0.82 Glucose 116 H Calcium 8.0 L - ABG Interpretation ABG results: ABG ABG pH 7.39 pH Units (7.32-7.45) 08/13/16 20:53 ABG pCO2 66 mmHg (35-45) H 08/13/16 20:53 ABG pO2 97 mmHg (85-104) 08/13/16 20:53 ABG O2 Saturation 97 % (95-98) 08/13/16 20:53 Interpretation: abnormal, respiratory acidosis (With metabolic alkalosis) - Diagnostic Studies CT scan - chest Status: image reviewed by me Additional comments: CT shows left lower lobe pneumonia and possibly right lower lobe pneumonia versus atelectasis. Consult Discharge Plan - Plan Referrals: Kesha Bustillos CNP [Primary Care Provider] - 08/17/16 9:00 am
[2016-08-14] MEDS ORDERED: Potassium Chloride Elixir 20 MEQ/15 ML UDC PO ONE (12:58)
[2016-08-14] MEDS ORDERED: Magnesium Sulfate 2 GM in D5% in Water 100 ML IVPB ONE (12:58)
[2016-08-14] MEDS: 0.9 % Sodium Chloride 1,000 ML IVC SCH ×2 (13:41→18:06)
[2016-08-14] MEDS: *HR* Rivaroxaban 15 MG TABLET PO SCH (16:24)
[2016-08-14 17:15] LABS: Magnesium 2.2 mg/dL (1.6-2.6); Phosphorous 3.1 mg/dL (2.3-4.7)
[2016-08-14 17:23] LABS: Potassium 5.1 mEq/L (3.5-4.5)
[2016-08-15 04:32] LABS: Basophils % 0.1 %; Eosinophils # 0.1 K/mcL (0.0-0.6); Eosinophils % 0.6 %; Hematocrit 30.2 % (35.3-44.9); Hemoglobin 8.9 g/dL (11.5-15.4); Immature Granulocytes % 0.5 % (0-4); Lymphocytes # 1.3 K/mcL (0.6-4.6); Lymphocytes % 16.4 %; Mean Corpuscular HGB Conc 29.5 g/dL (31.6-35.5); Mean Corpuscular Hemoglobin 25.6 pg (28.0-33.3); Mean Corpuscular Volume 86.8 fL (83.0-100.0); Mean Platelet Volume 10.3 fL (9.4-12.4); Monocytes # 0.6 K/mcL (0.0-1.3); Neutrophils # 5.9 K/mcL (1.6-8.9); Platelet Count 356 K/mcL (140-400); Red Blood Count 3.48 M/mcL (3.82-4.97); Red Cell Distribution Width 18.9 % (11.5-14.5); Segmented Neutrophils % 75.4 %
[2016-08-15 04:44] LABS: BUN/Creatinine Ratio 27 (6-26); Blood Urea Nitrogen 18 mg/dL (7-20); Calcium 7.9 mg/dL (8.6-10.8); Carbon Dioxide 33 mEq/L (19-29); Chloride 102 mEq/L (98-109); Glucose 112 mg/dL (70-99); Osmolality,Calculated 293 (280-300); Potassium 4.7 mEq/L (3.5-4.5); Sodium 140 mEq/L (136-145); eGFR For African Americans > 60 (> 60); eGFR For Non-African Americans > 60 (> 60)
[2016-08-15] MEDS: Ipratropium/Albuterol Neb 3 ML IH SCH ×3 (04:48→15:30)
[2016-08-15] MEDS ORDERED: Famotidine 20 MG TABLET PO SCH (09:00)
[2016-08-15] MEDS: Meropenem 500 MG in 0.9 % Sodium Chloride Mini Bag 100 ML IVPB SCH ×2 (09:22→15:43)
[2016-08-15] MEDS: Metoprolol XL (24 HR) Succ 50 MG TAB.ER.24H PO SCH (09:23)
[2016-08-15] MEDS: Aspirin 81 MG TAB.CHEW PO SCH (09:23)
[2016-08-15] MEDS: Ranolazine 500 MG TAB.ER.12H PO SCH (09:24)
[2016-08-15] MEDS: Divalproex Sodium 125 MG CAPSULE PO SCH ×2 (09:24→15:43)
[2016-08-15] MEDS: Isosorbide MONOnitrate (24 HR) 30 MG TAB.ER.24H PO SCH (09:25)
[2016-08-15] MEDS: predniSONE 20 MG TABLET PO SCH (09:25)
[2016-08-15 15:23] VITALS: BP 158/86
[2016-08-15] MEDS: 0.9 % Sodium Chloride 1,000 ML IVC SCH (15:42)
[2016-08-15] MEDS: *HR* Rivaroxaban 15 MG TABLET PO SCH (15:43)
--- NOTE | 2016-08-15 16:42 | Discharge Summary ---
Date of Encounter: 08/15/16 Time of Encounter: 15:50 - Discharge Diagnosis (1) Acute and chronic respiratory failure Priority: Primary Status: Acute Qualifiers: Respiratory failure complication: hypercapnia Qualified Code(s): J96.22 - Acute and chronic respiratory failure with hypercapnia (2) Acute bronchitis Priority: Primary Status: Acute Qualifiers: Bronchitis organism: unspecified organism Qualified Code(s): J20.9 - Acute bronchitis, unspecified (3) Acute encephalopathy Priority: Primary Status: Acute (4) History of coronary artery disease Priority: Secondary Status: Chronic (5) Pneumonia Priority: Primary Status: Acute Qualifiers: Pneumonia type: due to unspecified organism Laterality: bilateral Lung location: lower lobe of lung Qualified Code(s): J18.9 - Pneumonia, unspecified organism (6) Sepsis Priority: Primary Status: Acute Qualifiers: Sepsis type: sepsis due to unspecified organism Qualified Code(s): A41.9 - Sepsis, unspecified organism (7) Congestive heart failure Priority: Primary Status: Chronic Qualifiers: Congestive heart failure type: diastolic Congestive heart failure chronicity: acute on chronic Qualified Code(s): I50.33 - Acute on chronic diastolic (congestive) heart failure (8) UTI (urinary tract infection) Priority: Primary Status: Acute Qualifiers: Urinary tract infection type: acute cystitis Hematuria presence: without hematuria Qualified Code(s): N30.00 - Acute cystitis without hematuria (9) Atrial fibrillation Priority: Secondary Status: Chronic Qualifiers: Atrial fibrillation type: paroxysmal Qualified Code(s): I48.0 - Paroxysmal atrial fibrillation (10) B12 deficiency Priority: Primary Status: Chronic (11) Hypertension Priority: Secondary Status: Chronic Qualifiers: Hypertension type: essential hypertension Qualified Code(s): I10 - Essential (primary) hypertension (12) MRSA carrier Priority: Secondary Status: Chronic - Discharge Medications Prescriptions: Clindamycin [Cleocin] 300 mg PO TID 7 Days Lactobac Cmb #3/Fos/Pantethine [Probiotic & Acidophilus Cap] 1 each PO BID 30 Days Linezolid [Zyvox] 600 mg PO BID 10 Days Home Medications: Ranolazine [Ranexa] 500 mg PO BID 05/13/15 [History] Albuterol Sulfate [Albuterol Inhaler] 1 puff IH Q4H PRN 08/11/16 [History] Alprazolam [Xanax 0.25 MG Tablet] 0.25 mg PO Q6H PRN 08/11/16 [History] Aspirin 81 mg PO DAILY 08/11/16 [History] Atorvastatin Calcium [Lipitor] 20 mg PO HS 08/11/16 [History] Calcium Carbonate [Tums] 1,000 mg PO Q4HR PRN 08/11/16 [History] Citalopram Hydrobromide [Citalopram HBr] 10 mg PO HS 08/11/16 [History] Clopidogrel [Plavix] 75 mg PO DAILY 08/11/16 [History] Diphenhydramine HCl [Children's Allergy] 12.5 mg PO Q8H PRN 08/11/16 [History] Divalproex Sodium [Depakote Sprinkle] 125 mg PO TID 08/11/16 [History] Docusate [Colace] 200 mg PO BID 08/11/16 [History] Famotidine [Heartburn Prevention] 20 mg PO BID 08/11/16 [History] GuaiFENesin/Dextromethorphan [Tussin Dm Syrup] 10 ml PO TID 08/11/16 [History] Haloperidol Lactate [Haldol] 1 mg IM Q2H PRN 08/11/16 [History] Haloperidol [Haldol] 1 mg PO Q2H PRN 08/11/16 [History] Isosorbide MONOnitrate (24 HR) [Imdur] 90 mg PO DAILY 08/11/16 [History] Metoprolol XL (24 HR) Succ [Toprol Xl] 50 mg PO DAILY 08/11/16 [History] Polyethylene Glycol 3350 [MiraLAX Powder Bulk 17.9 Oz] 1 scoop PO DAILY [History] Rivaroxaban [Xarelto] 15 mg PO 1700 08/11/16 [History] Temazepam [Restoril] 7.5 mg PO HS 08/11/16 [History] TraMADol [Ultram] 50 mg PO Q8H PRN 08/11/16 [History] Clindamycin [Cleocin] 300 mg PO TID 7 Days 08/15/16 [Rx] Ipratropium/Albuterol Neb [Duoneb] 3 ml IH [id number] inhsol 08/15/16 [Rx] Lactobac Cmb #3/Fos/Pantethine [Probiotic & Acidophilus Cap] 1 each PO BID 30 Days 08/15/16 [Rx] Linezolid [Zyvox] 600 mg PO BID 10 Days 08/15/16 [Rx] PredniSONE 10 mg PO DAILY 7 Days 08/15/16 [Rx] Allergies/Adverse Reactions: Allergies codeine Allergy (Verified 08/11/16 13:31) Rash Iodinated Contrast Media - Oral and [Iodinated Contrast Media - IV Dye] Allergy (Verified 08/11/16 13:31) Rash morphine Allergy (Verified 08/11/16 13:31) Rash Penicillins [PCN] Allergy (Verified 08/11/16 13:31) Rash Sulfa (Sulfonamide Antibiotics) Allergy (Verified 08/11/16 13:31) Rash Tetracycline Allergy (Verified 08/11/16 13:31) Rash vancomycin Allergy (Verified 08/11/16 13:31) Rash Date of admission: 08/13/16 17:03 Primary care physician: Kesha Bustillos Discharging clinician: Oli Rivero Anticipated date of discharge: 08/15/16 - Patient Status Disposition: Transfer SNF Condition: Good Overall status at discharge: patient is progressing back to baseline - Discharge Instructions Follow Up With: Kesha Bustillos, GRADUATE ASSISTANT ATHLETIC TRAINER [Primary Care Provider] - 08/17/16 9:00 am Additional Instructions: Linezolid 600mg po X 10 DAYS cLINDAMYCIN 300MG PO tid x 7 BiPAP AT NIGHT SCHEDULED AND PRN BRONCHODILATORS. - Diet and Activity Activity: resume usual activities as tolerated Diet: low fat, low cholesterol, low salt diet Interval History: sHE LOOKS AND FEELS BETTER, SHE REQUEST A RIDE IN HER WHEEL CHAIR. Not in respiratory distress. Hospital course: Ms. Silverio is a 75 year old female asthma and diastolic CHF chronic persistent atrial fibrillation admitted with cough and shortness of breath. She was initially was assessed as acute bronchitis, chest CT subsequently confirmed air space disease consistent with pneumonia. Blood gas at admission demonstrated hypercarbia, forming the basiis for the diagnoses ' acute respiratory failure". Antimicrobial choices limited by history of allergies and sensitivities. She apparently developed reaction to Cefepime. Meropenem and Linezolid initiated. She has made clinical progress. She is much less short of breath. She is saturating > 94% on nasal cannula and BiPAP at night. Urine culture reports for lactobacillus of uncertain significance. Blood culture reports no bacterial growth. She is discharged home to complete course of antibiotics for acute bronchitis and pneumonia. At discharge She was breathing easily She made intelligent request No JVD, mild palor, anicteric afbrile. 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 - Constitutional Vitals: Temp Pulse Resp BP Pulse Ox 98.0 F 82 16 158/86 96 08/15/16 15:21 08/15/16 15:21 08/15/16 15:21 08/15/16 15:21 08/15/16 15:21 General appearance: Present: A&O X 3, pleasant, no acute distress, answers questions appropriately (most of the time)
--- NOTE | 2016-08-15 17:43 | Physician Discharge Referral ---
ExtendedCare Referral Info Transfer To: F Provider in Charge after Transfer: PCP Institutional Level of Care: Skilled - Diagnosis (1) Acute and chronic respiratory failure Priority: Primary Status: Acute (2) Acute bronchitis Priority: Primary Status: Acute (3) Acute encephalopathy Priority: Primary Status: Acute (4) History of coronary artery disease Priority: Secondary Status: Chronic (5) Pneumonia Priority: Primary Status: Acute (6) Sepsis Priority: Primary Status: Acute (7) Congestive heart failure Priority: Secondary Status: Chronic (8) UTI (urinary tract infection) Priority: Primary Status: Acute (9) Atrial fibrillation Priority: Secondary Status: Chronic (10) B12 deficiency Priority: Secondary Status: Chronic (11) Hypertension Priority: Secondary Status: Chronic (12) MRSA carrier Priority: Secondary Status: Chronic Aware of Diagnosis: Patient Aware of Prognosis: Patient - Transfer Medications Prescriptions: Clindamycin [Cleocin] 300 mg PO TID 7 Days Lactobac Cmb #3/Fos/Pantethine [Probiotic & Acidophilus Cap] 1 each PO BID 30 Days Linezolid [Zyvox] 600 mg PO BID 10 Days Home Medications: Ranolazine [Ranexa] 500 mg PO BID 05/13/15 [History] Albuterol Sulfate [Albuterol Inhaler] 1 puff IH Q4H PRN 08/11/16 [History] Alprazolam [Xanax 0.25 MG Tablet] 0.25 mg PO Q6H PRN 08/11/16 [History] Aspirin 81 mg PO DAILY 08/11/16 [History] Atorvastatin Calcium [Lipitor] 20 mg PO HS 08/11/16 [History] Calcium Carbonate [Tums] 1,000 mg PO Q4HR PRN 08/11/16 [History] Citalopram Hydrobromide [Citalopram HBr] 10 mg PO HS 08/11/16 [History] Clopidogrel [Plavix] 75 mg PO DAILY 08/11/16 [History] Diphenhydramine HCl [Children's Allergy] 12.5 mg PO Q8H PRN 08/11/16 [History] Divalproex Sodium [Depakote Sprinkle] 125 mg PO TID 08/11/16 [History] Docusate [Colace] 200 mg PO BID 08/11/16 [History] Famotidine [Heartburn Prevention] 20 mg PO BID 08/11/16 [History] GuaiFENesin/Dextromethorphan [Tussin Dm Syrup] 10 ml PO TID 08/11/16 [History] Haloperidol Lactate [Haldol] 1 mg IM Q2H PRN 08/11/16 [History] Haloperidol [Haldol] 1 mg PO Q2H PRN 08/11/16 [History] Isosorbide MONOnitrate (24 HR) [Imdur] 90 mg PO DAILY 08/11/16 [History] Metoprolol XL (24 HR) Succ [Toprol Xl] 50 mg PO DAILY 08/11/16 [History] Polyethylene Glycol 3350 [MiraLAX Powder Bulk 17.9 Oz] 1 scoop PO DAILY [History] Rivaroxaban [Xarelto] 15 mg PO 1700 08/11/16 [History] Temazepam [Restoril] 7.5 mg PO HS 08/11/16 [History] TraMADol [Ultram] 50 mg PO Q8H PRN 08/11/16 [History] Clindamycin [Cleocin] 300 mg PO TID 7 Days 08/15/16 [Rx] Ipratropium/Albuterol Neb [Duoneb] 3 ml IH [id number] inhsol 08/15/16 [Rx] Lactobac Cmb #3/Fos/Pantethine [Probiotic & Acidophilus Cap] 1 each PO BID 30 Days 08/15/16 [Rx] Linezolid [Zyvox] 600 mg PO BID 10 Days 08/15/16 [Rx] PredniSONE 10 mg PO DAILY 7 Days 08/15/16 [Rx] Allergies/Adverse Reactions: Allergies codeine Allergy (Verified 08/11/16 13:31) Rash Iodinated Contrast Media - Oral and [Iodinated Contrast Media - IV Dye] Allergy (Verified 08/11/16 13:31) Rash morphine Allergy (Verified 08/11/16 13:31) Rash Penicillins [PCN] Allergy (Verified 08/11/16 13:31) Rash Sulfa (Sulfonamide Antibiotics) Allergy (Verified 08/11/16 13:31) Rash Tetracycline Allergy (Verified 08/11/16 13:31) Rash vancomycin Allergy (Verified 08/11/16 13:31) Rash - Respiratory Orders Oxygen / L per min Smoking Cessation: Smoking cessation has been advised. For more information, call the [place] Tobacco Quit Line at [phone]-NOW. 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 17/11 35% RR12 - Diet Orders Cardiac CERTIFICATION: I certify that the transfer of the above named patient to an Extended Care Facility is necessary for the continuing treatment of the diagnosis listed. The above information is true and accurate reflection of patient's current condition. Confidential - Redisclosure prohibited without a patient's written consent.
== END 2016-08-15 19:00 | DRG 871 ==
LOC: 3BNU 13:23 → EMEROO 13:23 → 3BNU 19:29
PROVIDERS: ADMIT Nurse Practitioner Acute Care; ATTEND Nurse Practitioner Family

== ENCOUNTER 2019-07-11 12:09 | Inpatient (IN) ==
[2019-07-11] MEDS ORDERED: Naloxone 0.4 MG/ML INJ IVP PRN (13:47)
[2019-07-11] MEDS ORDERED: *HR* Promethazine 25 MG/ML VIAL IVP PRN (13:47)
[2019-07-11] MEDS ORDERED: D5% in 0.45% NACL 1,000 ML IVC SCH (14:00)
[2019-07-11 15:21] LABS: Basophils # 0.1 K/mcL (0.0-0.2); Basophils % 0.6 %; Eosinophils % 0.3 %; Hematocrit 34.3 % (35.3-44.9); Hemoglobin 10.4 g/dL (11.5-15.4); Immature Granulocytes % 4.4 % (0-4); Lymphocytes # 1.5 K/mcL (0.6-4.6); Lymphocytes % 14.3 %; Mean Corpuscular HGB Conc 30.3 g/dL (31.6-35.5); Mean Corpuscular Hemoglobin 32.4 pg (28.0-33.3); Mean Corpuscular Volume 106.9 fL (83.0-100.0); Mean Platelet Volume 10.5 fL (9.4-12.4); Monocytes # 0.9 K/mcL (0.0-1.3); Monocytes % 8.5 %; Neutrophils # 7.8 K/mcL (1.6-8.9); Nucleated Red Blood Cells 0.2 /100 WBC (0); Platelet Count 245 K/mcL (140-400); Red Blood Count 3.21 M/mcL (3.82-4.97); Red Cell Distribution Width 14.6 % (11.5-14.5); Segmented Neutrophils % 71.9 %; White Blood Count 10.8 K/mcL (4.3-11.1)
[2019-07-11 15:36] LABS: Potassium 3.9 mEq/L (3.5-5.1)
[2019-07-11] MEDS ORDERED: MetroNIDAZOLE 500 MG/100 ML 500 MG/100 ML BAG IVPB SCH (16:00)
[2019-07-11] MEDS ORDERED: *HR* Rivaroxaban 15 MG TABLET PO SCH (17:00)
[2019-07-11] MEDS ORDERED: hydrALAZINE 10 MG TABLET PO PRN (17:13)
[2019-07-11] MEDS ORDERED: Aspirin Enteric Coated 81 MG Tablet PO SCH (17:15)
[2019-07-11] MEDS: Divalproex (12 HR) 250 MG TABLET PO SCH (23:50)
[2019-07-11] MEDS: Rivastigmine Tartrate (oral) 1.5 MG CAPSULE PO SCH (23:51)
[2019-07-11] MEDS: Melatonin 3 MG TABLET PO SCH (23:51)
[2019-07-12] MEDS: *HR* Metoprolol 5 MG/5 ML VIAL IVP SCH ×2 (04:12→12:22)
[2019-07-12 04:23] LABS: INR 2.8; Prothrombin Time 32.4 Seconds (9.4-12.1)
[2019-07-12 04:30] LABS: Magnesium 1.8 mg/dL (1.6-2.6); Phosphorous 2.9 mg/dL (2.7-4.5)
[2019-07-12] MEDS: Ascorbic Acid 500 MG TABLET PO SCH (07:30)
[2019-07-12] MEDS: Rivastigmine Tartrate (oral) 1.5 MG CAPSULE PO SCH ×2 (07:30→20:18)
[2019-07-12] MEDS: Isosorbide MONOnitrate (24 HR) 60 MG TAB.ER.24H PO SCH (07:30)
[2019-07-12] MEDS: QUEtiapine Fumarate 25 MG TABLET PO SCH ×2 (07:30→20:17)
[2019-07-12] MEDS: Divalproex (12 HR) 250 MG TABLET PO SCH ×3 (07:30→20:17)
[2019-07-12 08:13] LABS: Basophils # 0.1 K/mcL (0.0-0.2); Basophils % 0.9 %; Eosinophils % 0.3 %; Hematocrit 36.3 % (35.3-44.9); Hemoglobin 11.2 g/dL (11.5-15.4); Immature Granulocytes % 5.2 % (0-4); Lymphocytes # 1.5 K/mcL (0.6-4.6); Lymphocytes % 11.9 %; Mean Corpuscular HGB Conc 30.9 g/dL (31.6-35.5); Mean Corpuscular Hemoglobin 32.9 pg (28.0-33.3); Mean Corpuscular Volume 106.8 fL (83.0-100.0); Mean Platelet Volume 10.6 fL (9.4-12.4); Monocytes # 0.8 K/mcL (0.0-1.3); Monocytes % 6.3 %; Nucleated Red Blood Cells 0.5 /100 WBC (0); Platelet Count 261 K/mcL (140-400); Red Cell Distribution Width 14.5 % (11.5-14.5); Segmented Neutrophils % 75.4 %; White Blood Count 12.4 K/mcL (4.3-11.1)
[2019-07-12 08:15] LABS: Neutrophils # 9.4 K/mcL (1.6-8.9)
[2019-07-12] MEDS ORDERED: D5% in 0.45% NACL 1,000 ML IVC SCH (08:15)
[2019-07-12 08:29] LABS: Albumin 2.6 g/dL (3.5-5.7); Albumin/Globulin Ratio 0.8 (1.1-2.2); Bilirubin,Total 0.6 mg/dL (0.3-1.0); Calcium 8.6 mg/dL (8.6-10.3); Globulin 3.2 g/dL (2.4-3.5); Total Protein 5.8 g/dL (6.4-8.9)
[2019-07-12] MEDS ORDERED: Metoprolol XL (24 HR) Succ 50 MG TAB.ER.24H PO SCH (09:00)
[2019-07-12] MEDS ORDERED: cefTRIAXone 1,000 MG in Water for inj. (sterile) 10 ML IVP SCH (09:00)
[2019-07-12] MEDS ORDERED: Acetaminophen IV 500 MG/50 ML INFUS..BTL IVPB ONE (09:00)
[2019-07-12 09:01] LABS: Platelet Estimate Normal (Normal)
[2019-07-12] MEDS: MetroNIDAZOLE 500 MG/100 ML 500 MG/100 ML BAG IVPB SCH (14:46)
[2019-07-12] MEDS ORDERED: *HR* Metoprolol 5 MG/5 ML VIAL IVP PRN (16:07)
[2019-07-12] MEDS: Metoprolol XL (24 HR) Succ 50 MG TAB.ER.24H PO SCH (17:05)
[2019-07-12] MEDS ORDERED: Doxycycline 100 MG in 0.9 % Sodium Chloride Mini Bag 100 ML IVPB SCH (18:00)
[2019-07-12] MEDS: Melatonin 3 MG TABLET PO SCH (20:18)
[2019-07-12] MEDS ORDERED: *HR* Rivaroxaban 15 MG TABLET PO SCH (23:15)
[2019-07-13] MEDS: MetroNIDAZOLE 500 MG/100 ML 500 MG/100 ML BAG IVPB SCH ×3 (00:09→16:18)
[2019-07-13 00:32] LABS: Basophils # 0.1 K/mcL (0.0-0.2); Basophils % 0.5 %; Eosinophils # 0.1 K/mcL (0.0-0.6); Hematocrit 34.4 % (35.3-44.9); Hemoglobin 10.5 g/dL (11.5-15.4); Immature Granulocytes % 3.2 % (0-4); Lymphocytes # 1.6 K/mcL (0.6-4.6); Lymphocytes % 14.1 %; Mean Corpuscular HGB Conc 30.5 g/dL (31.6-35.5); Mean Corpuscular Hemoglobin 32.5 pg (28.0-33.3); Mean Corpuscular Volume 106.5 fL (83.0-100.0); Mean Platelet Volume 11.2 fL (9.4-12.4); Monocytes # 0.7 K/mcL (0.0-1.3); Monocytes % 6.8 %; Neutrophils # 8.2 K/mcL (1.6-8.9); Nucleated Red Blood Cells 0.5 /100 WBC (0); Platelet Count 248 K/mcL (140-400); Red Blood Count 3.23 M/mcL (3.82-4.97); Red Cell Distribution Width 14.6 % (11.5-14.5); Segmented Neutrophils % 74.4 %
[2019-07-13 00:44] LABS: Albumin 2.4 g/dL (3.5-5.7); Albumin/Globulin Ratio 0.8 (1.1-2.2); Bilirubin,Total 0.5 mg/dL (0.3-1.0); Calcium 8.5 mg/dL (8.6-10.3); Globulin 2.9 g/dL (2.4-3.5); Potassium 3.7 mEq/L (3.5-5.1); Total Protein 5.3 g/dL (6.4-8.9)
[2019-07-13] MEDS ORDERED: D5% in Water 1,000 ML IVC SCH (08:15)
[2019-07-13] MEDS: QUEtiapine Fumarate 25 MG TABLET PO SCH ×2 (10:20→22:25)
[2019-07-13] MEDS: Ascorbic Acid 500 MG TABLET PO SCH (10:21)
[2019-07-13] MEDS: Rivastigmine Tartrate (oral) 1.5 MG CAPSULE PO SCH ×2 (10:21→22:22)
[2019-07-13] MEDS: Isosorbide MONOnitrate (24 HR) 60 MG TAB.ER.24H PO SCH (10:33)
[2019-07-13] MEDS: Divalproex (12 HR) 250 MG TABLET PO SCH (10:33)
[2019-07-13] MEDS: Metoprolol XL (24 HR) Succ 50 MG TAB.ER.24H PO SCH (10:34)
[2019-07-13 11:49] LABS: INR 3.1; Prothrombin Time 35.7 Seconds (9.4-12.1)
[2019-07-13] MEDS ORDERED: *HR* Phytonadione 5 MG TABLET PO ONE (11:56)
[2019-07-13] MEDS ORDERED: levoFLOXacin 750 MG/150 ML 750 MG/150 ML BAG IVPB SCH (12:00)
[2019-07-13] MEDS: Divalproex Sodium 125 MG CAPSULE PO SCH ×2 (14:38→22:25)
[2019-07-13] MEDS: Ferrous Sulfate Oral Soln 300 MG/5 ML UDC PO SCH (22:22)
[2019-07-13] MEDS: Melatonin 3 MG TABLET PO SCH (22:26)
[2019-07-14] MEDS: MetroNIDAZOLE 500 MG/100 ML 500 MG/100 ML BAG IVPB SCH ×4 (00:45→23:43)
[2019-07-14 07:17] LABS: Hematocrit 31.9 % (35.3-44.9); Hemoglobin 9.7 g/dL (11.5-15.4); Mean Corpuscular HGB Conc 30.4 g/dL (31.6-35.5); Mean Corpuscular Hemoglobin 32.2 pg (28.0-33.3); Mean Platelet Volume 11.3 fL (9.4-12.4); Platelet Count 217 K/mcL (140-400); Red Blood Count 3.01 M/mcL (3.82-4.97); Red Cell Distribution Width 14.2 % (11.5-14.5); White Blood Count 9.5 K/mcL (4.3-11.1)
[2019-07-14 07:22] LABS: INR 1.8
[2019-07-14 07:42] LABS: Calcium 7.8 mg/dL (8.6-10.3); Potassium 3.3 mEq/L (3.5-5.1)
[2019-07-14] MEDS ORDERED: Potassium Chloride Elixir 20 MEQ/15 ML UDC PO ONE (07:46)
[2019-07-14] MEDS ORDERED: 0.9 % Sodium Chloride 1,000 ML IVC SCH (08:00)
[2019-07-14] MEDS: Ferrous Sulfate Oral Soln 300 MG/5 ML UDC PO SCH ×2 (08:47→21:33)
[2019-07-14] MEDS: Rivastigmine Tartrate (oral) 1.5 MG CAPSULE PO SCH ×2 (08:47→20:51)
[2019-07-14] MEDS: Divalproex Sodium 125 MG CAPSULE PO SCH ×3 (08:48→20:50)
[2019-07-14] MEDS: Aspirin 81 MG TAB.CHEW PO SCH (08:50)
[2019-07-14] MEDS: QUEtiapine Fumarate 25 MG TABLET PO SCH ×2 (08:50→20:50)
[2019-07-14] MEDS: Ascorbic Acid 500 MG TABLET PO SCH (08:50)
[2019-07-14] MEDS: *HR* Rivaroxaban 15 MG TABLET PO SCH (16:55)
[2019-07-14] MEDS: Acetaminophen 325 MG TABLET PO PRN (17:52)
[2019-07-14] MEDS: Melatonin 3 MG TABLET PO SCH (20:51)
[2019-07-15 01:19] LABS: Basophils # 0.1 K/mcL (0.0-0.2); Basophils % 0.4 %; Eosinophils # 0.3 K/mcL (0.0-0.6); Eosinophils % 2.3 %; Hematocrit 32.9 % (35.3-44.9); Hemoglobin 10.1 g/dL (11.5-15.4); Immature Granulocytes % 2.1 % (0-4); Lymphocytes # 1.6 K/mcL (0.6-4.6); Lymphocytes % 14.3 %; Mean Corpuscular HGB Conc 30.7 g/dL (31.6-35.5); Mean Corpuscular Hemoglobin 32.4 pg (28.0-33.3); Mean Corpuscular Volume 105.4 fL (83.0-100.0); Mean Platelet Volume 11.3 fL (9.4-12.4); Monocytes # 0.6 K/mcL (0.0-1.3); Monocytes % 5.7 %; Neutrophils # 8.4 K/mcL (1.6-8.9); Nucleated Red Blood Cells 0.2 /100 WBC (0); Platelet Count 225 K/mcL (140-400); Red Blood Count 3.12 M/mcL (3.82-4.97); Red Cell Distribution Width 14.3 % (11.5-14.5); Segmented Neutrophils % 75.2 %; White Blood Count 11.2 K/mcL (4.3-11.1)
[2019-07-15 01:20] LABS: INR 1.9; Prothrombin Time 21.6 Seconds (9.4-12.1)
[2019-07-15 01:40] LABS: Calcium 7.9 mg/dL (8.6-10.3)
[2019-07-15] MEDS: Acetaminophen 325 MG TABLET PO PRN (05:23)
[2019-07-15] MEDS: 0.9 % Sodium Chloride 1,000 ML IVC SCH (10:36)
[2019-07-15] MEDS: Rivastigmine Tartrate (oral) 1.5 MG CAPSULE PO SCH ×2 (10:37→22:13)
[2019-07-15] MEDS: Ferrous Sulfate Oral Soln 300 MG/5 ML UDC PO SCH ×2 (10:37→22:14)
[2019-07-15] MEDS: QUEtiapine Fumarate 25 MG TABLET PO SCH ×2 (10:37→22:12)
[2019-07-15] MEDS: MetroNIDAZOLE 500 MG/100 ML 500 MG/100 ML BAG IVPB SCH ×3 (10:37→23:50)
[2019-07-15] MEDS: Ascorbic Acid 500 MG TABLET PO SCH (10:38)
[2019-07-15] MEDS: Ranolazine 500 MG TAB.ER.12H PO SCH ×2 (10:38→22:13)
[2019-07-15] MEDS: Divalproex Sodium 125 MG CAPSULE PO SCH ×3 (10:38→22:13)
[2019-07-15] MEDS: *HR* Rivaroxaban 15 MG TABLET PO SCH (18:06)
[2019-07-15] MEDS: Melatonin 3 MG TABLET PO SCH (22:12)
[2019-07-16 05:11] LABS: Basophils % 0.4 %; Eosinophils # 0.3 K/mcL (0.0-0.6); Eosinophils % 3.1 %; Hematocrit 30.3 % (35.3-44.9); Hemoglobin 9.8 g/dL (11.5-15.4); Immature Granulocytes % 2.1 % (0-4); Lymphocytes % 10.8 %; Mean Corpuscular HGB Conc 32.3 g/dL (31.6-35.5); Mean Corpuscular Hemoglobin 32.2 pg (28.0-33.3); Mean Corpuscular Volume 99.7 fL (83.0-100.0); Mean Platelet Volume 11.4 fL (9.4-12.4); Monocytes # 0.6 K/mcL (0.0-1.3); Monocytes % 6.5 %; Neutrophils # 7.4 K/mcL (1.6-8.9); Platelet Count 213 K/mcL (140-400); Red Blood Count 3.04 M/mcL (3.82-4.97); Red Cell Distribution Width 14.6 % (11.5-14.5); Segmented Neutrophils % 77.1 %; White Blood Count 9.6 K/mcL (4.3-11.1)
[2019-07-16 05:31] LABS: INR 1.7; Prothrombin Time 19.5 Seconds (9.4-12.1)
[2019-07-16 05:32] LABS: Calcium 7.8 mg/dL (8.6-10.3); Potassium 4.2 mEq/L (3.5-5.1)
[2019-07-16] MEDS: 0.9 % Sodium Chloride 1,000 ML IVC SCH (08:01)
[2019-07-16] MEDS: MetroNIDAZOLE 500 MG/100 ML 500 MG/100 ML BAG IVPB SCH (08:02)
[2019-07-16] MEDS: Divalproex Sodium 125 MG CAPSULE PO SCH ×3 (08:04→20:34)
[2019-07-16] MEDS: Aspirin 81 MG TAB.CHEW PO SCH (08:04)
[2019-07-16] MEDS: Ferrous Sulfate Oral Soln 300 MG/5 ML UDC PO SCH ×2 (08:04→20:32)
[2019-07-16] MEDS: Rivastigmine Tartrate (oral) 1.5 MG CAPSULE PO SCH ×2 (08:04→20:34)
[2019-07-16] MEDS: Ascorbic Acid 500 MG TABLET PO SCH (08:05)
[2019-07-16] MEDS: Ranolazine 500 MG TAB.ER.12H PO SCH ×2 (08:05→20:32)
[2019-07-16] MEDS: QUEtiapine Fumarate 25 MG TABLET PO SCH ×2 (09:50→20:33)
[2019-07-16] MEDS: metroNIDAZOLE 500 MG TABLET PO SCH ×2 (15:15→20:32)
[2019-07-16] MEDS: *HR* Rivaroxaban 15 MG TABLET PO SCH (16:51)
[2019-07-16] MEDS: Melatonin 3 MG TABLET PO SCH (20:33)
[2019-07-17] MEDS: 0.9 % Sodium Chloride 1,000 ML IVC SCH ×2 (04:52→08:06)
[2019-07-17 05:13] LABS: Basophils % 0.4 %; Eosinophils # 0.3 K/mcL (0.0-0.6); Hematocrit 32.6 % (35.3-44.9); Hemoglobin 10.7 g/dL (11.5-15.4); Immature Granulocytes % 2.3 % (0-4); Lymphocytes # 1.3 K/mcL (0.6-4.6); Lymphocytes % 12.6 %; Mean Corpuscular HGB Conc 32.8 g/dL (31.6-35.5); Mean Corpuscular Hemoglobin 32.2 pg (28.0-33.3); Mean Corpuscular Volume 98.2 fL (83.0-100.0); Mean Platelet Volume 11.9 fL (9.4-12.4); Monocytes # 0.7 K/mcL (0.0-1.3); Monocytes % 6.7 %; Neutrophils # 7.6 K/mcL (1.6-8.9); Platelet Count 193 K/mcL (140-400); Red Blood Count 3.32 M/mcL (3.82-4.97); Red Cell Distribution Width 14.7 % (11.5-14.5); White Blood Count 10.2 K/mcL (4.3-11.1)
[2019-07-17 05:20] LABS: Potassium 5.2 mEq/L (3.5-5.1)
[2019-07-17] MEDS: QUEtiapine Fumarate 25 MG TABLET PO SCH ×2 (09:19→21:55)
[2019-07-17] MEDS: Divalproex Sodium 125 MG CAPSULE PO SCH ×3 (09:19→21:55)
[2019-07-17] MEDS: Ferrous Sulfate Oral Soln 300 MG/5 ML UDC PO SCH ×2 (09:19→21:54)
[2019-07-17] MEDS: Ranolazine 500 MG TAB.ER.12H PO SCH ×2 (09:19→21:45)
[2019-07-17] MEDS: Ascorbic Acid 500 MG TABLET PO SCH (09:19)
[2019-07-17] MEDS: metroNIDAZOLE 500 MG TABLET PO SCH ×3 (09:19→21:56)
[2019-07-17] MEDS: Rivastigmine Tartrate (oral) 1.5 MG CAPSULE PO SCH ×2 (09:20→21:54)
[2019-07-17] MEDS: *HR* Rivaroxaban 15 MG TABLET PO SCH (18:01)
[2019-07-17] MEDS: Melatonin 3 MG TABLET PO SCH (21:56)
[2019-07-18 05:37] LABS: Calcium 8.1 mg/dL (8.6-10.3); Potassium 5.5 mEq/L (3.5-5.1)
[2019-07-18] MEDS: Divalproex Sodium 125 MG CAPSULE PO SCH ×2 (08:13→16:08)
[2019-07-18] MEDS: Rivastigmine Tartrate (oral) 1.5 MG CAPSULE PO SCH (08:13)
[2019-07-18] MEDS: Ferrous Sulfate Oral Soln 300 MG/5 ML UDC PO SCH (08:13)
[2019-07-18] MEDS: Aspirin 81 MG TAB.CHEW PO SCH (08:13)
[2019-07-18] MEDS: metroNIDAZOLE 500 MG TABLET PO SCH ×2 (08:13→16:08)
[2019-07-18] MEDS: QUEtiapine Fumarate 25 MG TABLET PO SCH (08:13)
[2019-07-18] MEDS: Ascorbic Acid 500 MG TABLET PO SCH (08:13)
[2019-07-18] MEDS: Ranolazine 500 MG TAB.ER.12H PO SCH (08:13)
[2019-07-18] MEDS ORDERED: Insulin Human Regular 10 UNIT in 0.9 % Sodium Chloride 10 ML IV ONE (08:14)
[2019-07-18] MEDS ORDERED: *HR* Dextrose 50 % in Water (Syg) 50 ML SYRINGE IVP ONE (08:14)
[2019-07-18 11:16] VITALS: BP 132/97
[2019-07-18 13:55] LABS: Calcium 8.1 mg/dL (8.6-10.3); Potassium 4.5 mEq/L (3.5-5.1)
[2019-07-18] MEDS: *HR* Rivaroxaban 15 MG TABLET PO SCH (16:08)
== END 2019-07-18 18:14 | DRG 871 ==
LOC: 3ANU → SUATTDRO 13:16
PROVIDERS: ADMIT Internal Medicine; ATTEND Family Medicine